=== PATIENT | male | born 1945 | race Caucasian/White ===

== ENCOUNTER 2018-02-13 16:31 | Emergency (ER) | payer OTHER ==
[2018-02-13 16:56] LABS: ADD MAN DIFF? NO
[2018-02-13 16:58] LABS: BASO % 1 % (0-3); EOS # 0.2 x10^3/uL (0.0-0.7); EOS % 5 % (0-3); HEMATOCRIT 41.7 % (39.0-53.0); HEMOGLOBIN 14.6 g/dL (13.0-17.5); LYMPH # 1.2 x10^3/uL (1.0-4.8); LYMPH % 33 % (24-48); MEAN CORPUSCULAR HEMOGLOBIN 34 pg (25-35); MEAN CORPUSCULAR HGB CONC 35 g/dL (31-37); MEAN CORPUSCULAR VOLUME 97 fL (79-100); MONO # 0.2 x10^3/uL (0.0-1.1); MONO % 6 % (0-9); NEUT # 2.1 x10^3uL (1.8-7.7); NEUT % 56 % (31-73); PLATELET COUNT 88 x10^3/uL (140-400); RED BLOOD COUNT 4.29 x10^6/uL (4.30-5.70); RED CELL DISTRIBUTION WIDTH 15.1 % (11.5-14.5); WHITE BLOOD COUNT 3.8 x10^3/uL (4.0-11.0)
[2018-02-13 17:07] LABS: INR 1.1 (0.8-1.1); PARTIAL THROMBOPLASTIN TIME 35 SEC (24-38); PROTHROMBIN TIME PATIENT 13.7 SEC (11.7-14.0)
[2018-02-13] MEDS: fentaNYL PF VIAL 100 MCG/2 ML VIAL IV ×2 (17:07→17:46)
[2018-02-13] MEDS: IV NORMAL SALINE 1000ML BAG 1,000 ML IV (17:07)
[2018-02-13 17:09] LABS: ANION GAP 11 (6-14); BLOOD UREA NITROGEN 9 mg/dL (8-26); CALCIUM 8.6 mg/dL (8.5-10.1); CARBON DIOXIDE 26 mmol/L (21-32); CHLORIDE 104 mmol/L (98-107); CREATININE 0.7 mg/dL (0.7-1.3); GFR 111.2; GLUCOSE 116 mg/dL (70-99); POTASSIUM 3.9 mmol/L (3.5-5.1); SODIUM 141 mmol/L (136-145)
[2018-02-13 17:12] LABS: ETHANOL < 10 mg/dL (0-10)
[2018-02-13 17:15] LABS: ALBUMIN 3.9 g/dL (3.4-5.0); ALK PHOS 151 U/L (46-116); ALT (SGPT) 71 U/L (16-63); AST (SGOT) 73 U/L (15-37); DIRECT BILIRUBIN 0.3 mg/dL (0.0-0.2); LIPASE 168 U/L (73-393); TOTAL BILIRUBIN 1.1 mg/dL (0.2-1.0); TOTAL PROTEIN 8.5 g/dL (6.4-8.2)
[2018-02-13 17:18] LABS: LACTIC ACID 1.4 mmol/L (0.4-2.0)
[2018-02-13 17:57] LABS: TROPONIN BY ISTAT 0.01 ng/ml (<0.08)
[2018-02-13] MEDS: MORPHINE SULFATE 10 MG/ML VIAL. IV ×2 (18:16→20:11)
[2018-02-13 20:03] LABS: BILIRUBIN,URINE NEGATIVE (NEG); CLARITY,URINE CLEAR; COLOR,URINE YELLOW; GLUCOSE,URINE NEGATIVE (NEG); NITRITE,URINE NEGATIVE (NEG); PROTEIN,URINE NEGATIVE (NEG-TRACE); UROBILINOGEN,URINE 0.2 mg/dL (0.2 mg/dL)
[2018-02-13] MEDS: ONDANSETRON PF 4 MG/2 ML VIAL. IV (20:11)
[2018-02-13 20:18] LABS: BACTERIA,URINE 0 /HPF (0-FEW); RBC,URINE 0 /HPF (0-2); SQUAMOUS EPITHELIAL CELL,UR OCC /LPF; WBC,URINE 0 /HPF (0-4)
[2018-02-13 20:21] LABS: BARBITURATES NEG (NEG); BENZODIAZEPINES NEG (NEG); CANNABINOIDS NEG (NEG); COCAINE NEG (NEG); METHADONE NEG (NEG); OPIATES POS (NEG); PHENCYCLIDINE NEG (NEG)
[2018-02-13 20:27] LABS: AMPHETAMINE/METHAMPHETAMINE NEG (NEG); ETHANOL, URINE NEG (NEG)
== END 2018-02-13 20:28 | disposition home or self-care (01) ==
LOC: ER 16:31
DX: S22.20XA Unspecified fracture of sternum, initial encounter for closed fracture (principal); S22.43XA Multiple fractures of ribs, bilateral, initial encounter for closed fracture; Z88.6 Allergy status to analgesic agent; Z91.041 Radiographic dye allergy status; W50.1XXA Accidental kick by another person, initial encounter; Y93.89 Activity, other specified; Y99.8 Other external cause status; Y92.89 Other specified places as the place of occurrence of the external cause
CPT/HCPCS: 36415; 70450; 71045; 71250; 72125; 74176; 80048; 80076; 80307; 81001; 83605; 83690; 84484; 85025; 85610; 85730; 86850; 86900; 86901; 93005; 96374; 96375; 99285-25; G0480; J2270; J2405; J3010; J7030